=== PATIENT | male | born 1970 | race Caucasian/White ===

== ENCOUNTER → 2023-11-14 | Outpatient (CLI) | payer MEDICAID ==
[~2023-11-14] MED LIST: FENO160T4; GLIM2TAB33; LAMO100T4; LEVO13CA2; LITH300C3; METF-370; QUET100T38; SIMV40TA18
== END | disposition home or self-care (01) ==
LOC: XYW 07:25
DX: K31.84 Gastroparesis (principal)
CPT/HCPCS: 78264; A9541